=== PATIENT | female | born 1950 | race Caucasian/White ===

== ENCOUNTER → 2021-12-20 | Outpatient (CLI) | payer OTHER | LOC: CARD 10:10 | PROVIDERS: ATTEND Internal Medicine Cardiovascular Disease | DX: I11.9 Hypertensive heart disease without heart failure (principal); I08.0 Rheumatic disorders of both mitral and aortic valves; I25.10 Atherosclerotic heart disease of native coronary artery without angina pectoris | CPT/HCPCS: 93306 ==

== ENCOUNTER → 2021-12-27 | Outpatient (CLI) | payer OTHER ==
[~2021-12-27] VITALS: Ht 152 cm; Wt 78.0 kg
[~2021-12-27] MED LIST: CATHETER FLUSH 10 ML SYR IVP PRN; REGADENOSON 0.4 MG/5 ML SYR (LEXISCAN) IV ONE
[2021-12-27 09:52] VITALS: BP 216/73
[2021-12-27 09:57] VITALS: BP 171/76
--- NOTE | 2021-12-27 14:40 | Cardiology Stress Test Report ---
Stress Test Report Date of Procedure/Referring: Date of Procedure: Dec 27, 2021 PCP Deleted Admitting Physician Admitting Physician: Attending Physician: Bonny Carlton MD Indications: CP Baseline Heart Rate: 76 Baseline Blood Pressure: Blood Pressure Systolic: 171 Blood Pressure Diastolic: 76 Baseline Vitals Vital Signs Date Time Temp Pulse Resp B/P (MAP) Pulse Ox O2 Delivery O2 Flow Rate FiO2 12/27/21 09:52 81 17 216/73 (120) Room Air Baseline EKG: Baseline EKG: LBBB Summary After explaining the procedure to the patient, she signed a consent and then brought to the stress nuclear laboratory. Patient received 0.4 mg Lexiscan for stress test, ECG, heart rate and blood pressure were monitored continuously. Resting and stress dose of radio tracer were injected, imaging was acquired and reviewed in short axis, horizontal long axis and vertical long axis views. TID: 1.02 SSS: 9 SDS: 7 EF: 43 1. Patient tolerated Lexiscan well 2. Reversible ischemia involving the mid to apical anterior wall mid to apical inferior wall and inferolateral wall 3. Normal left ventricular size with hypokinesia of the anterior wall, ejection fraction 43% BONNY CARLTON MD Dec 27, 2021 14:40
== END ==
LOC: CARD 08:45
PROVIDERS: ATTEND Internal Medicine Cardiovascular Disease
DX: I25.10 Atherosclerotic heart disease of native coronary artery without angina pectoris (principal); I10 Essential (primary) hypertension
CPT/HCPCS: 78452; 93017; A9502

== ENCOUNTER 2022-01-03 10:00 | Day surgery (SDC) | payer OTHER ==
[2022-01-03] VITALS (9 sets, daily range): BP systolic 107–185; BP diastolic 63–91
[~2022-01-03] VITALS: Ht 152.4 cm; Wt 72.1 kg
--- NOTE | 2022-01-03 08:22 | Diagnostic Imaging Report ---
Indication: Abnormal stress test AP view of chest is obtained. There is no previous study for comparison. There has been previous median sternotomy with surgical findings in the mediastinum and stenting of great vessels in the upper mediastinum. Bilateral air trapping with interstitial markings noted in the lung bases which could be due to atelectasis or scarring. No pneumothorax or pleural fluid is seen. IMPRESSION: Probable background COPD and previous mediastinal surgery. No definite acute abnormality seen. Dictated by: Dictated on workstation # [id number]
[2022-01-03 08:33] LABS: BILIRUBIN,URINE NEGATIVE (NEGATIVE); CLARITY,URINE CLEAR; COLOR,URINE YELLOW; GLUCOSE, URINE (UA) NEGATIVE (NEGATIVE); KETONES,URINE NEGATIVE (NEGATIVE); LEUKOCYTE ESTERASE ,URINE 1+ (NEGATIVE); NITRITE,URINE NEGATIVE (NEGATIVE); PROTEIN,URINE NEGATIVE (NEGATIVE)
[2022-01-03 08:39] LABS: HEMATOCRIT 37 % (35-52); MEAN CORPUSCULAR HEMOGLOBIN 33 pg (25-34); MEAN CORPUSCULAR HGB CONC 32 g/dL (32-36); MEAN CORPUSCULAR VOLUME 103 fL (80-99); MEAN PLATELET VOLUME 10.4 fL (9.0-12.2); PLATELET COUNT 205 10^3/uL (130-400); WHITE BLOOD COUNT 7.8 10^3/uL (4.3-11.0)
[2022-01-03 08:44] LABS: BACTERIA,URINE FEW /HPF; RBC,URINE RARE /HPF
[2022-01-03 08:50] LABS: ALBUMIN 3.8 GM/DL (3.2-4.5); BILIRUBIN,TOTAL 0.3 MG/DL (0.1-1.0); CALCIUM 9.1 MG/DL (8.5-10.1); CREATININE SERUM 0.91 MG/DL (0.60-1.30); TOTAL PROTEIN 7.3 GM/DL (6.4-8.2)
[~2022-01-03 10:00] MED LIST changes: +ACHD5005 PO; +ASPI-1238 PO; +ATOR80TA76 PO; +B2/V1TAB2 PO; -CATHETER FLUSH 10 ML SYR IVP PRN; +CLOP75TA28 PO; +CYCL10TA25 PO; +ESZO3TAB39 PO; +FLUO40CA PO; +FLUT9.9S NS; +FURO40TA4 PO; +HEParin (CATH LAB) 2,000 ML IV ONE; +LEVO50CA4 PO; +LIDOCAINE 1% INJ 20 ML VIAL ONE; +MTP25TSR PO; +MULT-1021 PO; +NS IV 1000 ML 1,000 ML IV SCH; +NS IV 1000 ML 1,000 ML ONE; +PRIM50TA33 PO; -REGADENOSON 0.4 MG/5 ML SYR (LEXISCAN) IV ONE; +RT-ALBUINH IH
--- NOTE | 2022-01-03 12:14 | Cardiac Procedure Note-CS/ASA ---
Pre-Procedure Note Pre-Op Procedure Note Date of Available H&P: Dec 27, 2021 Date H&P Reviewed: Jan 03, 2022 Time H&P Reviewed: 12:13 History & Physical: H&P Reviewed, Patient Examed, No changes noted Pre-Operative Diagnosis: CAD Conscious Sedation Pre-Proced Time 12:14 ASA Score 3 For ASA 3 and 4: Consider anesthesia and medical clearance. Also, for patients with a history of failed moderate sedation consider anesthesia. Airway Lungs Heart ASA score ASA 1: a normal healthy patient ASA 2: a patient with a mild systemic disease (mid diabetes, controlled hypertension, obesity ASA 3: a patient with a severe systemic disease that limits activity (angina, COPD, prior Myocardial infarction) ASA 4: a patient with an incapacitating disease that is a constant threat to life (CHF, renal failure) ASA 5: a moribund patient not expected to survive 24 hrs. (ruptured aneurysm) ASA 6: a declared brain- patient whose organs are being harvested. For emergent operations, add the letter E after the classification Mallampati Classification Grade 3 Sedation Plan Analgesia, Amnesia, Plan communicated to team members, Discussed options with patient/fam, Discussed risks with patient/fam The patient is an appropriate candidate to undergo the planned procedure, sedation, and anesthesia. The patient immediately re-assessed prior to indication. BONNY ANAYA MD Jan 03, 2022 12:14
[2022-01-03] MEDS ORDERED: fentaNYL INJ 100 MCG/2 ML AMP ONE (12:20)
[2022-01-03] MEDS ORDERED: MIDAZOLAM 2 MG/2 ML (VERSED) VIAL ONE ×2 (12:20→12:45)
[2022-01-03] MEDS ORDERED: LIDOCAINE 1% INJ 20 ML VIAL ONE (12:48)
--- NOTE | 2022-01-03 13:09 | Discharge Inst-Post CATH ---
Discharge Inst-CATH/EP Problems Reviewed?: Yes Post Cardiac Cath/EP D/C Inst Follow Up/Plan Appointment with Dr. Carlton's office in 2 to 4 weeks <b>CARDIAC CATH/EP PROCEDURE DISCHARGE INSTRUCTIONS</b> ACTIVITY * Go Home directly and rest. * Limit activity of the leg (or wrist if it was used) for 7 days including aer obics, swimming, jogging, bicycling, etc. * Restrict stair-climbing for 7 days if possible, if not, climb up with your non-cath leg, then bring together on the same step. * Avoid lifting, pushing, pulling or excessive movement of the affected extremi ty for 7 days. * Customary sexual activity may be resumed after 2 days-use caution not to use a position that strains or causes pain to the affected extremity. * No driving for 24 hours. * NO SMOKING. * Avoid straining for bowel movements for 7 days. * Gentle walking on level ground is allowed. * Returning to work will depend on the type of procedure and the results. Your doctor will discuss this with you. CALL YOUR DOCTOR FOR ANY OF THE FOLLOWING: *If bleeding from the puncture site occurs- Apply gentle pressure to site with clean cloth and call your doctor or EMS. * If a knot or lump forms under the skin, increases in size, or causes pain. * If bruising appears to be worsening or moving further down your leg instead of disappearing. * Temperature above 101 F. CARE OF YOUR GROIN INCISION; * Bruising or purple discoloration of the skin near the puncture site is common. * You may shower only, no bathtub bathing for 5 days. Be careful to avoid slipping as your leg may feel stiff. * If a closure device was used on your femoral artery, please see the attached guide regarding care of the device and your leg. * Leave dressing on FOR 24 hours. CARE OF YOUR WRIST INCISION; * Bruising or purple discoloration of the skin near the puncture site is common. * You may shower. * DO NOT submerge wrist. * Leave dressing on FOR 24 hours. BONNY CARLTON MD Jan 03, 2022 13:09
[2022-01-03] MEDS ORDERED: PATIENT MAY USE OWN MEDS, ALL PO SCH (13:15)
[2022-01-03] MEDS ORDERED: NS IV 1000 ML 1,000 ML IV SCH (13:15)
--- NOTE | 2022-01-03 13:16 | Cardiac Cath Report ---
Cardiac Cath Report Physician (s)/Plush Dresser (s) Physician BONNY ANAYA MD Pre-Procedure Diagnosis Pre-Procedure Diagnosis: CAD Post-Procedure Note Procedure Start Date: Jan 03, 2022 Name of Procedure: Left heart catheterization Vein graft angiogram DUBOSE angiogram Abdominal aortogram with bilateral lower extremities runoff Findings/Procedure Note PROCEDURE NOTE: 71-year-old lady with history of coronary artery disease, CABG, peripheral arterial disease, extensive history, had an abnormal stress test, scheduled for cardiac catheterization possible PTCA. After explaining the procedure to the patient, all pros and cons were explained, all questions were answered. The patient signed the consent and then she was placed on the cardiac catheterization laboratory. Groin was prepped SL fashion local anesthesia was used. I was able to access the right femoral artery with a needle, could not advance the wire, did a single injection through the needle and did not visualize the right common femoral artery. Manual pressure applied. Access through the left groin was done and sheath was placed then I advanced Fabiola left catheter to the left system angiogram was done, Fabiola right catheter was advanced to the right coronary artery and angiogram was done then engage the vein graft and I did nonselective angiogram to the DUBOSE. Pigtail catheter was advanced to the left ventricular cavity, pressure was measured, pullback LV to aorta was done, the pigtail catheter was placed in the abdominal aorta and runoff to the abdominal aorta and bilateral lower extremity was done. At the end of the procedure the sheath was removed. Closure device was deployed FINDINGS: Hemodynamics LV 122/8, end-diastolic pressure of 8 Aorta 117/58 mean of 80 ANATOMY: Left Main has no obstructive disease Left Anterior Descending is is occluded distally with patent DUBOSE to the LAD. Left Circumflex is originating from the right coronary artery, nondominant artery with no obstructive disease Right Coronary Artery is dominant artery, total occlusion at the mid right coronary artery, occluded vein graft to the right coronary artery, the distal right coronary artery is receiving collaterals from the LAD Vein graft angiogram there is a single marker of vein graft presumably to the right coronary artery that is occluded DUBOSE angiogram was done with nonselective injection in the subclavian artery, patient had a stent extending from the aorta in the subclavian artery, mild in- stent restenosis, the DUBOSE to the LAD is patent with good flow distally LV Gram was not done, pressure was measured Aorta evaluation done with abdominal aortogram with bilateral lower extremities runoff: Abdominal aorta has moderate atherosclerotic plaque, slight aneurysmal dilation of the lara infrarenally, the renal arteries superior and inferior mesenteric arteries are small with mild disease nonobstructive disease Right common iliac artery is occluded and right common femoral artery is occluded there is femorofemoral bypass from the left to the right that is filling the right SFA and deep femoral artery with good flow down to the trifurcation. Left common iliac artery and common femoral artery has mild to moderate disease. Left SFA is patent with no significant obstructive disease CONCLUSION: 1. 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 Total occlusion of the distal LAD with patent DUBOSE to LAD, total occlusion of the mid right coronary artery that is a dominant artery receiving collaterals from the left system 3. Patent left subclavian artery stent with mild in-stent restenosis 4. Small infrarenal abdominal aortic aneurysm 5. Total occlusion of the right common iliac and common femoral artery with patent femorofemoral bypass from the left common femoral to the right side filling the SFA with good flow down to the trifurcation DISCUSSION AND RECOMMENDATION: Continue to maximize medical therapy no intervention is warranted Anesthesia Type: Conscious Sedation Estimated blood loss (mL): 20 ml Contrast Amount: 66 ml Total Radiation Dose: 235 mGy Post-Procedure Diagnosis Post-operative diagnosis: Chest pain Coronary artery disease Peripheral arterial disease Hypertension Hyperlipidemia BONNY ANAYA MD Jan 03, 2022 13:16
== END 2022-01-03 17:30 | disposition home or self-care (01) ==
LOC: CATH 10:00 → SDC 13:29 → CATH 17:30
PROVIDERS: ATTEND Internal Medicine Cardiovascular Disease
DX: I25.10 Atherosclerotic heart disease of native coronary artery without angina pectoris (principal); I10 Essential (primary) hypertension; E78.5 Hyperlipidemia, unspecified; I73.9 Peripheral vascular disease, unspecified; Z79.82 Long term (current) use of aspirin; F17.210 Nicotine dependence, cigarettes, uncomplicated; E03.9 Hypothyroidism, unspecified; K21.00 Gastro-esophageal reflux disease with esophagitis, without bleeding
CPT/HCPCS: 71045; 80053; 80061; 81000; 85027; 85610; 85730; 87081; 87088; 93005; 93459; C1760; C1769; C1894; 36415